=== PATIENT | female | born 1955 | race Caucasian/White ===

== ENCOUNTER → 2019-08-01 | Outpatient (CLI) | payer BC ==
--- NOTE | 2019-08-01 11:30 | REP ---
CT chest without contrast: Low-dose screening exam: History: Personal history of nicotine dependence. No comparison study. 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 There is a densely calcified benign left thyroid nodule associated with mild tracheal deviation to the right at the level of the thoracic inlet. Some vascular calcification is observed. There are multiple small subcentimeter ground-glass opacities clustered in the left lower lobe just above the left hemidiaphragm which may be inflammatory changes. There is some linear fibroatelectatic change in the left lower lobe. Some linear fibrosis is seen in the right lower lobe as well. There is a 6 mm partly solid nodule in the right middle lobe on page 43 of 96 in series 201. There is a smaller 2-3 mm nodule which may be calcified near this in the right middle lobe also on page 43. No other significant pulmonary parenchymal opacity is seen. Impression: LUNG RADS category [address] study recommended in 1 year. Electronically Signed by Kevin Ventura MD 08/01/2019 03:50 P
== END ==
LOC: M RAD 09:48
PROVIDERS: ATTEND Internal Medicine Pulmonary Disease
DX: Z87.891 Personal history of nicotine dependence (principal); Z12.2 Encounter for screening for malignant neoplasm of respiratory organs

== ENCOUNTER → 2020-02-03 | Outpatient (CLI) | payer BC ==
--- NOTE | 2020-02-18 13:22 | REP ---
NONCONTRAST CHEST CT CLINICAL: Follow-up abnormal lung findings. COMPARISON: 08/01/2019. TECHNIQUE: Axial noncontrast images from the thoracic inlet to the upper abdomen with coronal and sagittal reformations. FINDINGS: The bilateral lung vuong are well-aerated and relatively clear. Minimal chronic bronchiectasis and subtle scarring at the bilateral bases remain stable. Small densities in the right middle lobe (Image 49), which were identified on prior examination also remain stable. The presumed inflammatory changes involving the left lower lobe on prior examination along with a few scattered ground-glass and nonsolid densities have all resolved. No acute consolidation, significant nodule, or mass lesion. No effusion. No pneumothorax. Tracheobronchial tree is patent. Mediastinum demonstrates stable atherosclerotic changes to the thoracic aorta and coronary arteries with aortic aneurysm or cardiomegaly. No pericardial effusion. A large calcified left thyroid nodule causing contralateral shift to the trachea is again noted and unchanged. The trachea itself appears patent and without stenosis or compromise. Surrounding musculoskeletal structures are intact. IMPRESSION: * Previously noted presumed inflammatory changes have resolved. * Minimal chronic stable changes as described above. * No acute mediastinal or pleural parenchymal process appreciated. * Stable appearance to the calcified left thyroid lesion. MTDD
== END ==
LOC: M RAD 09:34
PROVIDERS: ATTEND Internal Medicine Pulmonary Disease
DX: R91.8 Other nonspecific abnormal finding of lung field (principal); E04.1 Nontoxic single thyroid nodule

== ENCOUNTER → 2021-03-11 | Outpatient (CLI) | payer BC ==
--- NOTE | 2021-03-13 09:38 | REP ---
INDICATION: LUNG CANCER SCREENING COMPARISON: None. TECHNIQUE: Axial noncontrast images from the thoracic inlet to the upper abdomen using low-dose lung screening technique (LDCT). FINDINGS: The bilateral lung vuong are well aerated. Chronic age-related interstitial changes are appreciated bilaterally predominately involving the lower lobes. The small densities previously noted in the right middle lobe are less apparent than prior examinations. The subtle opacities in the left lower lobe on prior examination dated 08/01/2019 has resolved. No acute consolidation, suspicious nodule, or mass. No effusion. No pneumothorax. Tracheobronchial tree is patent. Mediastinum is stable. IMPRESSION: 1. Lung-RADS category 1. Chronic interstitial changes. Previously noted small nodules in the right middle lobe and transient inflammatory changes in the left lower lobe have resolved. 2. Management recommendations include annual low-dose CT surveillance. <Electronically signed by Micah De Guzman > 03/13/21 0934
== END ==
LOC: M RAD 09:56
PROVIDERS: ATTEND Internal Medicine Pulmonary Disease
DX: Z12.2 Encounter for screening for malignant neoplasm of respiratory organs (principal); Z87.891 Personal history of nicotine dependence

== ENCOUNTER → 2022-04-26 | Outpatient (CLI) | payer BC | LOC: M RAD 12:13 | PROVIDERS: ATTEND Internal Medicine Pulmonary Disease | DX: Z12.2 Encounter for screening for malignant neoplasm of respiratory organs (principal); Z87.891 Personal history of nicotine dependence ==

== ENCOUNTER → 2023-07-20 | Outpatient (CLI) | payer MEDICARE | LOC: M RAD 09:42 | PROVIDERS: ATTEND Internal Medicine Pulmonary Disease | DX: Z87.81 Personal history of (healed) traumatic fracture (principal) ==

== ENCOUNTER → 2024-08-19 | Outpatient (CLI) | payer MEDICARE | LOC: M RAD 14:20 | PROVIDERS: ATTEND Internal Medicine Pulmonary Disease | DX: Z12.2 Encounter for screening for malignant neoplasm of respiratory organs (principal); Z87.891 Personal history of nicotine dependence ==